=== PATIENT | male | born 1985 | race Caucasian/White ===

== ENCOUNTER 2017-03-27 08:32 | Emergency (ER) | payer BC ==
--- NOTE | 2017-03-27 08:35 | EDM.PDOC ---
ED HPI GENERAL MEDICAL PROBLEM - General Chief Complaint: Abdominal Pain Stated Complaint: STOMACH PAIN [id number] Time Seen by Provider: 03/27/17 08:34 Source of Information: Reports: Patient History Limitations: Reports: No Limitations - History of Present Illness INITIAL COMMENTS - FREE TEXT/NARRATIVE: C/O onset of watery diarrhea on , March 25. Denies abdominal pain, N/ V, bloody or black stool, fever, or chills. No one else in contact with him have been ill that he is aware of. Onset Date: 03/25/17 Duration: Constant Location: Reports: Abdomen Quality: Reports: Other (mild cramps preceed diarrhea BMs) Severity: Mild Improves with: Reports: None Worsens with: Reports: None Associated Symptoms: Reports: No Other Symptoms Past Medical History - Past Health History Medical/Surgical History: Denies Medical/Surgical History Social & Family History - Family History Family Medical History: Noncontributory - Living Situation & Occupation Living situation: Reports: with Family ED ROS GENERAL - Review of Systems Review Of Systems: ROS reveals no pertinent complaints other than HPI. ED EXAM, GI/ABD - Physical Exam Exam: See Below Exam Limited By: No Limitations General Appearance: Alert, WD/WN, No Apparent Distress Eyes: Bilateral: Normal Appearance Nose: Normal Inspection Throat/Mouth: Normal Inspection, Normal Lips, Normal Teeth, Normal Gums, Normal Oropharynx, Normal Voice, No Airway Compromise Head: Atraumatic, Normocephalic Neck: Normal Inspection, Supple, Non-Tender, Full Range of Motion Cardiovascular: Normal Peripheral Pulses, Regular Rate, Rhythm, No Edema, No Gallop, No JVD, No Murmur, No Rub GI/Abdominal Exam: Normal Bowel Sounds, Soft, Non-Tender, No Organomegaly, No Distention, No Abnormal Bruit, Pelvis Stable (Male) Exam: Deferred Rectal (Males) Exam: Deferred Back Exam: Normal Inspection Extremities: Normal Inspection Neurological: Alert, Oriented, CN II-XII Intact, Normal Cognition, Normal Gait, No Motor/Sensory Deficits Psychiatric: Normal Affect, Normal Mood Skin Exam: Warm, Dry, Intact, Normal Color, No Rash Course - Vital Signs Last Recorded V/S: Last Vital Signs Temp 36.6 C 03/27/17 08:43 Pulse 88 03/27/17 08:43 Resp 20 03/27/17 08:43 BP 131/106 H 03/27/17 08:43 Pulse Ox 100 03/27/17 08:43 - Orders/Labs/Meds Orders: Active Orders 24 hr Category Date Time Status CULTURE STOOL [RM] Stat Lab 03/27/17 08:59 Uncollected Guiac, Stool [OCCULT BLOOD DIAGNOSTIC] [OP] Stat Lab 03/27/17 08:59 Uncollected UA W/MICROSCOPIC [URIN] Stat Lab 03/27/17 08:59 Uncollected Labs: Laboratory Tests 03/27/17 03/27/17 Range/Units 09:06 09:06 WBC 8.1 (5.0-10.0) 10^3/uL RBC 5.87 (4.6-6.2) 10^6/uL Hgb 17.6 (14.0-18.0) g/dL Hct 48.5 (40.0-54.0) % MCV 82.6 (80-100) fL MCH 30.0 (27.0-34.0) pg MCHC 36.3 H (33.0-35.0) g/dL Plt Count 148 L (150-450) 10^3/uL Neut % (Auto) 73.1 (42.2-75.2) % Lymph % (Auto) 13.2 L (20.5-50.1) % Butts % (Auto) 11.5 H (2-8) % Eos % (Auto) 2.0 (1.0-3.0) % Baso % (Auto) 0.2 (0.0-1.0) % Sodium 138 (135-145) mmol/L Potassium 4.0 (3.6-5.0) mmol/L Chloride 102 (101-111) mmol/L Carbon Dioxide 26.0 (21.0-31.0) mmol/L Anion Gap 14.0 BUN 15 (7-18) mg/dL Creatinine 1.1 (0.6-1.3) mg/dL Est Cr Clr Drug Dosing 115.23 mL/min Estimated GFR (MDRD) > 60 BUN/Creatinine Ratio 13.63 Glucose 103 (74-105) mg/dL Calcium 9.2 (8.4-10.2) mg/dl Total Bilirubin 1.2 H (0.2-1.0) mg/dL AST 27 (10-42) IU/L ALT 37 (10-60) IU/L Alkaline Phosphatase 47 (42-121) IU/L Total Protein 7.8 (6.7-8.2) g/dl Albumin 4.7 (3.2-5.5) g/dl Globulin 3.1 Albumin/Globulin Ratio 1.52 - Re-Assessments/Exams Free Text/Narrative Re-Assessment/Exam: 03/27/17 09:55 Pt unable to produce a stool specimen. Departure - Departure Time of Disposition: 09:55 Disposition: Home, Self-Care 01 Condition: Good Clinical Impression: Diarrhea Qualifiers: Diarrhea type: unspecified type Qualified Code(s): R19.7 - Diarrhea, unspecified - Discharge Information Instructions: Diarrhea, Adult Forms: ED Department Discharge Additional Instructions: Rx: Lomotil Avoid dairy products (except for yogurt with active cultures). Drink plenty of water to prevent dehydration. Follow up in clinic if not improving in 2 to 3 days. - My Orders Last 24 Hours: My Active Orders 03/27/17 08:59 CULTURE STOOL [RM] Stat Guiac, Stool [OCCULT BLOOD DIAGNOSTIC] [OP] Stat UA W/MICROSCOPIC [URIN] Stat - Assessment/Plan Last 24 Hours: My Active Orders 03/27/17 08:59 CULTURE STOOL [RM] Stat Guiac, Stool [OCCULT BLOOD DIAGNOSTIC] [OP] Stat UA W/MICROSCOPIC [URIN] Stat
[2017-03-27 08:45] VITALS: BP 131/106
[2017-03-27 09:34] LABS: CHLORIDE,CL 102 mmol/L (101-111); SODIUM,NA 138 mmol/L (135-145)
== END 2017-03-27 10:06 | disposition home or self-care (01) ==
LOC: DL.ED 08:32
DX: R19.7 Diarrhea, unspecified (principal)
CPT/HCPCS: 36415; 80053; 85025; 99284